=== PATIENT | male | born 1960 | race Caucasian/White ===

== ENCOUNTER 2018-06-20 16:49 | Inpatient (IN) ==
[2018-06-20] MEDS ORDERED: Acetaminophen 325 MG Tablet PO PRN (19:18)
[2018-06-20] MEDS ORDERED: Aluminum/Magnesium/Simethacone Susp 30 ML UDC PO PRN (19:18)
[2018-06-20] MEDS ORDERED: LORazepam 1 MG Tablet PO PRN (19:38)
[2018-06-20] MEDS ORDERED: Dextrose 50% in Water 50 ML Vial IV.PUSH PRN (20:00)
[2018-06-20] MEDS: Insulin NovoLOG Aspart Correctional Sugar Inj SQ SCH (21:26)
[2018-06-20] MEDS: oxyCODONE/Acetaminophen 10/325 Tablet PO PRN (22:18)
[2018-06-20] MEDS: Gabapentin 300 MG Capsule PO SCH (22:19)
[2018-06-21 02:05] LABS: Amphetamine Screen,Urine Neg (Neg); Barbiturate Screen,Urine Neg (Neg); Cannabinoid Screen,Urine Neg (Neg); Cocaine Screen,Urine Pos (Neg); Opiate Screen,Urine Neg (Neg)
[2018-06-21] MEDS: Insulin NovoLOG Aspart Correctional Sugar Inj SQ SCH ×5 (05:55→21:36)
[2018-06-21] MEDS: Gabapentin 300 MG Capsule PO SCH ×2 (09:02→21:25)
[2018-06-21] MEDS: Sertraline 100 MG Tablet PO SCH ×2 (09:02→21:25)
[2018-06-21] MEDS: oxyCODONE/Acetaminophen 10/325 Tablet PO PRN ×2 (09:10→18:07)
[2018-06-21 09:50] LABS: Calcium 9.1 mg/dL (8.5-10.1); Carbon Dioxide 27.1 meq/L (21.0-32.0); Potassium 4.7 meq/L (3.5-5.1)
[2018-06-21 09:53] LABS: Chol/HDL Ratio 2.68 Ratio; HDL Cholesterol 54.3 mg/dL (40.0-60.0)
[2018-06-21 10:52] LABS: Hemoglobin A1c 7.3 % (4.3-6.0)
--- NOTE | 2018-06-21 12:29 | P.HPPSY ---
Provisional Diagnosis Admission Date: June 20, 2018 18:40 [place] I.: Unspecified psychosis, rule out delusional disorder, rule out substance-induced psychosis Competence Certification of Person's Competence To Provide Express and Informed Consent I have personally examined Ayan Ace, a person being served at [facility] on, June 21, 2018 1222. Express and informed consent means consent voluntarily given in writing, by a competent person, after sufficient explanation and disclosure of the subject matter involved to enable the person to make a knowing and willful decision without any element of force, fraud, deceit, duress, or other form of constraint or coercion. This person is 18 years of age or older, is not now known to be incompetent to consent to treatment with a guardian advocate, and does not have a health care surrogate or proxy currently making medical treatment decisions. I have found this person to be one of the following: [] Competent to provide express and informed consent, as defined above, for voluntary admission to this facility and is competent to provide express and informed consent for treatment. He/she has the consistent capacity to make well reasoned, willful, and knowing decisions concerning his or her medical or mental health treatment. The person fully and consistently understands the purpose of the admission for examination/placement and is fully capable of personally exercising all rights assured [place] [] Incompetent to provide express and informed consent to voluntary admission, and this is incompetent to provide express and informed consent to treatment. The person must be transferred to involuntary status and a petition for a guardian advocate filed with the Circuit Court. [x] Refusing to provide express and informed consent to voluntary admission but is competent to provide express and informed consent for treatment. The person must be discharged or transferred to involuntary status. Form shall be completed within 24 hours of a person's arrival at the receiving facility and filed in the clinical record of each person: 1. Admitted on a voluntary basis 2. Permitted to provide express and informed consent to his/her own treatment 3. Allowed to transfer from involuntary to voluntary status 4. Prior to permitting a person to consent to his or her own treatment after having been previously found incompetent to consent to treatment. History of Present Illness Capacity: Has capacity History of Present Illness: 06/19/2017: The patient is a 57-year-old man, domiciled with his nephew in [facility], , unemployed, supported by [facility], with a psychiatric history of anxiety, alcohol use disorder he is on Xanax 0.5 mg 3 times daily, Zoloft 100 mg, no previous psychiatric hospitalizations, no previous suicide attempt with a past medical history significant for hypertension, diabetes mellitus, hypothyroidism and chronic back pain, who presents to the emergency department under [place] act for the evaluation of visual hallucinations and active paranoia. U tox was not done, BAL was 60. Routine lab work found the patient to be in acute renal failure. The patient has no known history of kidney disease however states he was previously treated for renal failure in the hospital but he cannot remember when or where. He states he was given IV fluids and was told that his issues had resolved. BUN/creatinine was 21/3.6, no recent lab work for comparison and baseline unknown. Consulted to psychiatry to address perceptual disturbances. On my psychiatric evaluation the patient initially calm, cooperative, but as the patient starts talking about his preoccupation and delusional perceptions he becomes a little bit agitated and irritable. The patient reports that at least for the last month he has seen 3 people underneath his trailer who are digging under the floor and cutting panels in the carpet and then re-taping it shut so that the evidence is gone when he tries to point this out to family members. The patient reports he has had conversations with the people under his trailer telling them that they need to leave. He adamantly states that he is not crazy and these people are actually there. Patient reports that he can listen to them, and during the night he can feel when they are digging under his house. He reports that he has been quite distressed, anxious and even depressed due to the situation. He says that he also has been very upset because nobody seems to believe him. He denies suicidal and homicidal ideation, he denies visual and auditory hallucinations. The patient does not have any significant thought process disorder, he is mostly logical, coherent and relevant. However, he has a fixed , insightless, will structure dilution, with increased paranoia and definitely visual hallucinations. He is fully oriented x3, no attention deficit, no fluctuation of consciousness are present. No agitation or aggressive behavior at this time. 06/21/2017: The patient is seen today for psychiatric reevaluation. Case was widely discussed with nursing charge. Chart reviewed. On the interview the patient presents calm, cooperative, pleasant. The patient reports that he feels much better to be here, he denies distress, he denies pain. He says that people here in the unit are very nice. However, the patient continues to say that he is upset with his family, because his family does not believe him "and I am the only one who knows that they are in danger". Patient says that there are several man around his house trying to dig a hole to get to his trailer. He says this man are homeless people "very dangerous". Patient is able to be redirected, but he does not have any insight. He denies suicidal and homicidal ideation, he denies visual and auditory hallucinations, no agitation, no aggressive behavior, no thought process disorder present at this moment. Collateral information from his [id number] Judit, , was obtained. She says that the patient has been living with her son for the last months. She says that the patient has been increasingly erratic, isolated, not being himself. She says that the patient has been making a statement that does not make any sense. She says that the patient has been calling the police, called multiple family members stating that homeless people are trying to kill him, are around his house, and are digging a hole under the house to get to his room to kill him. Recently, the patient has broken mirrors, doors and other objects in the house stating that the people are behind those places. Tonight the patient does not sleep, he keeps watching through the windows, and pointing at people that do not really exist. Family are very preoccupied about this behavior. She says that the patient also has been drinking alcohol every day. PPHx: with a psychiatric history of anxiety, alcohol use disorder he is on Xanax 0.5 mg 3 times daily, Zoloft 100 mg, no previous psychiatric hospitalizations, no previous suicide attempt, he says that he has an outpatient psychiatry which name is Dr. Acosta PMHx: with a past medical history significant for hypertension, diabetes mellitus, hypothyroidism and chronic back pain, Family Hx: No family psychiatric history Substance Hx: He reports to drinking 3 rum and Cokes approximately 2-3 times per week. Social Hx: man, was born and raised in [place], he is , has an adult son, domiciled with his nephew in [facility], unemployed, supported by [facility] - Inpatient Certification I certify that the inpatient services were ordered in accordance with Medicare regulations governing the order. This includes certification that hospital inpatient services are reasonable and necessary and in the case of services not specified as inpatient-only under 42 CFR 419.22(n), that they are appropriately provided as inpatient services in accordance to with the 2-midnight benchmark under 43 CFR 412.3(e) I certify that inpatient psychiatric hospital services are medically necessary. Evaluation and treatment and/or diagnostic testing are expected to improve the patient's condition. The patient needs on a daily basis, active treatment furnished directly by or requiring the supervision of inpatient psychiatric facility personnel. Review of Systems All other systems reviewed negative except as stated in HPI Psychiatric: Reports paranoia PMFSH - History History Provided By: Patient - Medical History Medical History: Medical History (Last Reviewed 06/18/18 @ 16:51 by MOOKIE Orozco) Diabetes Hepatitis C History of throat cancer Hypertension - Surgical History Surgical History: Surgical History (Last Reviewed 06/18/18 @ 16:51 by MOOKIE Orozco) History of ankle surgery History of tonsillectomy - Tobacco History Second Hand Smoke Exposure: No Smoking Status: Current every day smoker Tobacco Type: Cigarettes - Alcohol History How Often Do You Have a Drink Containing Alcohol: 2 to 4 times a month - Substance Use History Substance History: No History of Abuse Medications and Allergies Active Medications: Active Medications Acetaminophen (Tylenol) 650 mg PO Q4H PRN PRN Reason: Pain 1-5 or Temp >101F Al Hydrox/Mg Hydrox/Simethicone (Mag-Al Plus Susp Liq) 30 ml PO Q6H PRN PRN Reason: DYSPEPSIA Al Hydroxide/Mg Hydroxide (Milk Of Magnesia Liq) 30 ml PO Q12H PRN PRN Reason: Mild Constipation Clindamycin HCl (Cleocin) 450 mg PO Q6H [facility] Last Admin: 06/21/18 09:03 Dose: 450 mg Dextrose (D50w Vial) 50 ml IV.PUSH UNSCH PRN PRN Reason: PER HYPOGLYCEMIA PROTOCOL Flumazenil (Romazicon Inj) 0.2 mg IV.PUSH Q1M PRN PRN Reason: OVERSEDATION Gabapentin (Neurontin) 300 mg PO BID [facility] Last Admin: 06/21/18 09:02 Dose: 300 mg Glucagon (Glucagon Inj) 1 mg OTHER PRN PRN PRN Reason: for Hypoglycemia Protocol Insulin Aspart (Novolog Insulin Correctional Sugar Inj) 0 unit SQ ACHS AND 3AM SELMA; Protocol Last Admin: 06/21/18 11:25 Dose: 5 unit Insulin Detemir (Levemir Inj) 20 unit SQ QPM [facility] Lactobacillus Acidophilus (Lactinex Pkt) 1 gm PO BID [facility] Last Admin: 06/21/18 09:03 Dose: Not Given Levothyroxine Sodium (Synthroid) 25 mcg PO DAILY@0600 [facility] Lorazepam (Ativan) 1 mg PO Q4H PRN PRN Reason: for CIWA 8-10 Lorazepam (Ativan) 2 mg PO Q2H PRN PRN Reason: for CIWA 11-14 Lorazepam (Ativan Inj) 2 mg IV.PUSH Q2H PRN PRN Reason: for CIWA 11-14 Lorazepam (Ativan Inj) 2 mg IV.PUSH Q1H PRN PRN Reason: for CIWA 15-20 Lorazepam (Ativan Inj) 2 mg IV.PUSH Q15M PRN PRN Reason: for CIWA > 20 Lorazepam (Ativan Inj) 1 mg IV.PUSH Q4H PRN PRN Reason: for CIWA 8-10 Metoprolol Succinate (Toprol Xl) 25 mg PO DAILY [facility] Last Admin: 06/21/18 09:03 Dose: 25 mg Nicotine (Habitrol 21 Mg Patch.24 Hr) 1 patch T-DERMAL DAILY [facility] Last Admin: 06/21/18 09:09 Dose: Not Given Oxycodone/Acetaminophen (Percocet 10/325 Mg) 1 tab PO Q8H PRN PRN Reason: PAIN SCALE 6-10 Last Admin: 06/21/18 09:10 Dose: 1 tab Patch Removal (Remove Old Patch) 1 each T-DERMAL HS [facility] Last Admin: 06/20/18 22:25 Dose: Not Given Risperidone (Risperdal) 1 mg PO BID [facility] Last Admin: 06/21/18 09:03 Dose: 1 mg Sertraline HCl (Zoloft) 100 mg PO BID [facility] Last Admin: 06/21/18 09:02 Dose: 100 mg Thiamine HCl (Vitamin B1) 100 mg PO DAILY [facility] Last Admin: 06/21/18 09:03 Dose: 100 mg Allergies Allergy/AdvReac Type Severity Reaction Status Date / Time No Known Allergies Allergy Verified 06/18/18 16:13 Home Medications Medication Instructions Recorded Confirmed Type alprazolam 0.5 mg PO TID 06/18/18 06/18/18 History benazepril 10 mg PO DAILY 06/18/18 06/18/18 History cyclobenzaprine 5 mg PO TID 06/18/18 06/18/18 History gabapentin 300 mg PO TID 06/18/18 06/18/18 History glimepiride 5 mg PO BID 06/18/18 06/18/18 History insulin detemir U-100 [Levemir 20 unit SUBCUT QPM 06/18/18 06/18/18 History FlexTouch U-100 Insuln] levothyroxine 25 mcg PO DAILY 06/18/18 06/18/18 History metoprolol succinate 25 mg PO DAILY 06/18/18 06/18/18 History oxycodone-acetaminophen [Percocet] 1 tab PO Q6H PRN 06/18/18 06/18/18 History sertraline 100 mg PO BID 06/18/18 06/18/18 History Results - Labs CBC & Chem 7: 06/21/18 08:46 Labs: Laboratory Results - last 24 hr 06/21/18 06/21/18 06/21/18 01:42 05:53 07:27 Sodium Potassium Chloride Carbon Dioxide Anion Gap BUN Creatinine Estimated GFR POC Glucose 107 138 H Random Glucose Hemoglobin A1c Calcium Triglycerides Cholesterol LDL Cholesterol, Calc HDL Cholesterol Cholesterol/HDL Ratio Urine Opiates Screen Neg Ur Barbiturates Screen Neg Ur Amphetamines Screen Neg U Benzodiazepines Scrn Pos H Urine Cocaine Screen Pos H U Cannabinoids Screen Neg 06/21/18 06/21/18 06/21/18 08:46 08:46 11:20 Sodium 135 L Potassium 4.7 Chloride 101 Carbon Dioxide 27.1 Anion Gap 7 BUN 10 Creatinine 1.14 Estimated GFR 66 L POC Glucose 101 Random Glucose 244 H Hemoglobin A1c 7.3 H Calcium 9.1 Triglycerides 137 Cholesterol 146 LDL Cholesterol, Calc 64 HDL Cholesterol 54.3 Cholesterol/HDL Ratio 2.68 Urine Opiates Screen Ur Barbiturates Screen Ur Amphetamines Screen U Benzodiazepines Scrn Urine Cocaine Screen U Cannabinoids Screen Exam Vital signs: Vital Signs 06/20/18 18:58 06/21/18 03:58 06/21/18 06:10 Temperature 97.6 F 97.6 F Pulse Rate 77 95 H 77 Respiratory Rate 18 16 Blood Pressure 185/89 H 152/88 H 148/86 H Pulse Oximetry 77 L 100 Intake & Output 06/20/18 06/21/18 06/21/18 18:59 06:59 18:59 Weight 70.8 kg Other: Weight On Admission 70.8 kg Narrative: No tremors, no EPS, no psychomotor agitation or retardation, no withdrawal symptoms - Constitutional no acute distress, mild distress - Routine HEENT Exam Head: Present: normocephalic Eye: Present: EOMI ENT: Present: mucous membranes moist Mental Status Examination Appearance: Appropriate Consciousness: Alert Orientation: x4 Motor Activity: Normal gait Speech: Unremarkable Language: Adequate Fund of Knowledge: Adequate Attention and Concentration: Adequate Memory: Unremarkable Mood: Appropriate Affect: Appropriate Thought Process & Associations: Intact Thought Content: Delusional Hallucination Type: None Delusion Type: Bizarre, Paranoid Suicidal Ideation: No Suicidal Plan: No Suicidal Intention: No Homicidal Ideation: No Homicidal Plan: No Homicidal Intention: No Insight: Fair Judgment: Impulsive Assessment and Plan - Assessment (1) Unspecified psychosis Code(s): F29 - Unspecified psychosis not due to a substance or known physiological condition Status: Acute - Plan Plan: On my psychiatric evaluation today the patient presents calmer and more cooperative than my last evaluation in the medical floor, but he continues to be moderately distressed by what seems to be paranoid delusions fueled by visual hallucinations. The patient reports that he has been observing homeless people around his house digging a hole in the yard, in order to get to his house and to kill him. Apparently the patient has demonstrated changes in his behavior, has not been sleeping, has been aggressive, has destroyed property in his house, as per family. Apparently the patient has been demonstrating changes in behavior, visual hallucinations, and paranoid delusions for the last month. Patient has a psychiatric history of anxiety, alcohol use disorder, no previous psychiatric hospitalizations, no pre-suicide attempts, he has an established outpatient psychiatric care with Dr. Acosta, has been in Zoloft 100 mg and Xanax 0.5 mg 3 times daily. Given the level of his psychosis the patient represents danger to self and others. At this moment is unclear if current presentation is etiologically related with alcohol/benzodiazepine withdrawal, alcohol hallucinosis or a primary psychiatric illness decompensation. -He will be admitted in psychiatry for stabilization and safety -Will restart his Zoloft 100 mg. -We will start Risperdal 1 mg twice daily for psychosis. QTC is 419 -We will start CIWA protocol for potential withdrawal of benzodiazepine and alcohol -grounds worker intervention for psychosocial assessment, individual and group therapies, collateral information and to coordinate safe discharge -Support, motivation, psychoeducation provided -We will consult psychiatry for second opinion Justification for Continued Inpatient Stay: Continue psychiatric admission
--- NOTE | 2018-06-21 14:58 | P.CON ---
History of Present Illness Service: [facility] Consult date: 06/21/18 Requesting Physician: Pradeep Sparks Reason for Consult: Medical management, recent YIMI and cellulitis Primary Care Provider: UNKNOWN Chief Complaint: right knee pain History of Present Illness: Patient is a 57-year-old male with significant past medical history of alcohol use, anxiety, diabetes type 2, hypertension, hypothyroidism, chronic back pain. Patient initially presented to emergency room on June 18 under Moise act for evaluation of visual hallucinations. During evaluation in the emergency room, patient was found in acute renal failure. Patient had no known history of chronic kidney disease. He was also found with right knee cellulitis. Patient was admitted, psychiatry as well as nephrology were consulted for evaluation. Psychiatry evaluated patient and initiated medications, was put on CISC protocol. Psychiatry recommended admission once medically clear. Nephrology evaluated patient, renal ultrasound was done which showed no obstruction. He was put on IV fluids and renal function improved. Patient was put on antibiotics initially Keflex which caused some diarrhea therefore he was switched to clindamycin. He has tolerated well. Wound care has follow patient , and right knee is improving. Patient was medically clear and was discharged to psych for further treatment. Patient is now evaluated, he is ambulating around unit without any difficulties. Indicates that the right knee is improving. When asked how he injured the right knee, indicates he had been doing yard work and had been kneeling for hours and developed 2 fluid-filled blisters that popped. No recent fever, no chills. Denies any diarrhea, no nausea, no vomiting. Has been voiding well. Denies any chest pain, no shortness of breath. Endorses history of alcohol use, states he does not drink daily and only at bars. States that he is doing better, he expresses that he is upset that his sister for bringing him here. Hospital services are requested to assist with medical management. Review of Systems All other systems reviewed negative except as stated in HPI PMFSH - History History Provided By: Patient - Medical History Medical History: Medical History (Last Reviewed 06/21/18 @ 16:38 by MOOKIE Gaines) ETOH abuse Tobacco abuse Diabetes Hepatitis C History of throat cancer Hypertension - Surgical History Surgical History: Surgical History (Last Reviewed 06/21/18 @ 16:38 by MOOKIE Gaines) History of ankle surgery History of tonsillectomy - Family History Family History: Family History (Last Updated 06/21/18 @ 16:38 by MOOKIE Gaines) Other No pertinent family history - Social History I have reviewed the patient's Social History: Yes - Tobacco History Second Hand Smoke Exposure: No Smoking Status: Current every day smoker Tobacco Type: Cigarettes - Alcohol History How Often Do You Have a Drink Containing Alcohol: 2 to 4 times a month - Substance Use History Substance History: No History of Abuse - Substance Use Type Other Frequency: weekly Last Used: few days ago Comment: [place] stated he used multiple substances in his 20's. He states he drinks socially 2x per week. Medications and Allergies Active Medications: Active Medications Acetaminophen (Tylenol) 650 mg PO Q4H PRN PRN Reason: Pain 1-5 or Temp >101F Al Hydrox/Mg Hydrox/Simethicone (Mag-Al Plus Susp Liq) 30 ml PO Q6H PRN PRN Reason: DYSPEPSIA Al Hydroxide/Mg Hydroxide (Milk Of Magnesia Liq) 30 ml PO Q12H PRN PRN Reason: Mild Constipation Clindamycin HCl (Cleocin) 450 mg PO Q6H [facility] Last Admin: 06/21/18 14:27 Dose: 450 mg Dextrose (D50w Vial) 50 ml IV.PUSH UNSCH PRN PRN Reason: PER HYPOGLYCEMIA PROTOCOL Flumazenil (Romazicon Inj) 0.2 mg IV.PUSH Q1M PRN PRN Reason: OVERSEDATION Gabapentin (Neurontin) 300 mg PO BID [facility] Last Admin: 06/21/18 09:02 Dose: 300 mg Glucagon (Glucagon Inj) 1 mg OTHER PRN PRN PRN Reason: for Hypoglycemia Protocol Insulin Aspart (Novolog Insulin Correctional Sugar Inj) 0 unit SQ ACHS AND 3AM SELMA; Protocol Last Admin: 06/21/18 11:25 Dose: 5 unit Insulin Detemir (Levemir Inj) 20 unit SQ QPM SELMA Lactobacillus Acidophilus (Lactinex Pkt) 1 gm PO BID [facility] Last Admin: 06/21/18 09:03 Dose: Not Given Levothyroxine Sodium (Synthroid) 25 mcg PO DAILY@0600 [facility] Lorazepam (Ativan) 1 mg PO Q4H PRN PRN Reason: for CIWA 8-10 Lorazepam (Ativan) 2 mg PO Q2H PRN PRN Reason: for CIWA 11-14 Lorazepam (Ativan Inj) 2 mg IV.PUSH Q2H PRN PRN Reason: for CIWA 11-14 Lorazepam (Ativan Inj) 2 mg IV.PUSH Q1H PRN PRN Reason: for CIWA 15-20 Lorazepam (Ativan Inj) 2 mg IV.PUSH Q15M PRN PRN Reason: for CIWA > 20 Lorazepam (Ativan Inj) 1 mg IV.PUSH Q4H PRN PRN Reason: for CIWA 8-10 Metoprolol Succinate (Toprol Xl) 25 mg PO DAILY [facility] Last Admin: 06/21/18 09:03 Dose: 25 mg Nicotine (Habitrol 21 Mg Patch.24 Hr) 1 patch T-DERMAL DAILY [facility] Last Admin: 06/21/18 09:09 Dose: Not Given Oxycodone/Acetaminophen (Percocet 10/325 Mg) 1 tab PO Q8H PRN PRN Reason: PAIN SCALE 6-10 Last Admin: 06/21/18 09:10 Dose: 1 tab Patch Removal (Remove Old Patch) 1 each T-DERMAL HS [facility] Last Admin: 06/20/18 22:25 Dose: Not Given Risperidone (Risperdal) 1 mg PO BID [facility] Last Admin: 06/21/18 09:03 Dose: 1 mg Sertraline HCl (Zoloft) 100 mg PO BID [facility] Last Admin: 06/21/18 09:02 Dose: 100 mg Thiamine HCl (Vitamin B1) 100 mg PO DAILY [facility] Last Admin: 06/21/18 09:03 Dose: 100 mg Allergies Allergy/AdvReac Type Severity Reaction Status Date / Time No Known Allergies Allergy Verified 06/18/18 16:13 Home Medications Medication Instructions Recorded Confirmed Type alprazolam 0.5 mg PO TID 06/18/18 06/18/18 History benazepril 10 mg PO DAILY 06/18/18 06/18/18 History cyclobenzaprine 5 mg PO TID 06/18/18 06/18/18 History gabapentin 300 mg PO TID 06/18/18 06/18/18 History glimepiride 5 mg PO BID 06/18/18 06/18/18 History insulin detemir U-100 [Levemir 20 unit SUBCUT QPM 06/18/18 06/18/18 History FlexTouch U-100 Insuln] levothyroxine 25 mcg PO DAILY 06/18/18 06/18/18 History metoprolol succinate 25 mg PO DAILY 06/18/18 06/18/18 History oxycodone-acetaminophen [Percocet] 1 tab PO Q6H PRN 06/18/18 06/18/18 History sertraline 100 mg PO BID 06/18/18 06/18/18 History Physical Exam Vital signs: Vital Signs 06/20/18 18:58 06/21/18 03:58 06/21/18 06:10 Temperature 97.6 F 97.6 F Pulse Rate 77 95 H 77 Respiratory Rate 18 16 Blood Pressure 185/89 H 152/88 H 148/86 H Pulse Oximetry 77 L 100 Intake & Output 06/20/18 06/21/18 06/21/18 18:59 06:59 18:59 Weight 70.8 kg Other: Weight On Admission 70.8 kg Narrative: GENERAL: Well-nourished, well-developed patient in no apparent distress. SKIN: Right knee with scabbed ulcerated wound, irregular borders, healing well, minimal erythema. Eschar noted. HEAD: Atraumatic. Normocephalic. EYES: Pupils equal and round. No scleral icterus. No injection or drainage. ENT: No nasal bleeding or discharge. Mucous membranes pink and moist. NECK: Trachea midline. No JVD. CARDIOVASCULAR: Regular rate and rhythm. RESPIRATORY: No accessory muscle use. Clear to auscultation. Breath sounds equal bilaterally. GASTROINTESTINAL: Abdomen soft, non-tender, nondistended. Hepatic and splenic margins not palpable. MUSCULOSKELETAL: Extremities without clubbing, cyanosis, or edema. No obvious deformities. NEUROLOGICAL: Awake and alert and oriented x3.. No obvious cranial nerve deficits. Motor grossly within normal limits. Five out of 5 muscle strength in the arms and legs. Normal speech. PSYCHIATRIC: Remains somewhat paranoid Results - Labs CBC & Chem 7: 06/21/18 08:46 Labs: Laboratory Results - last 24 hr 06/21/18 06/21/18 06/21/18 01:42 05:53 07:27 Sodium Potassium Chloride Carbon Dioxide Anion Gap BUN Creatinine Estimated GFR POC Glucose 107 138 H Random Glucose Hemoglobin A1c Calcium Triglycerides Cholesterol LDL Cholesterol, Calc HDL Cholesterol Cholesterol/HDL Ratio Urine Opiates Screen Neg Ur Barbiturates Screen Neg Ur Amphetamines Screen Neg U Benzodiazepines Scrn Pos H Urine Cocaine Screen Pos H U Cannabinoids Screen Neg 06/21/18 06/21/18 06/21/18 08:46 08:46 11:20 Sodium 135 L Potassium 4.7 Chloride 101 Carbon Dioxide 27.1 Anion Gap 7 BUN 10 Creatinine 1.14 Estimated GFR 66 L POC Glucose 101 Random Glucose 244 H Hemoglobin A1c 7.3 H Calcium 9.1 Triglycerides 137 Cholesterol 146 LDL Cholesterol, Calc 64 HDL Cholesterol 54.3 Cholesterol/HDL Ratio 2.68 Urine Opiates Screen Ur Barbiturates Screen Ur Amphetamines Screen U Benzodiazepines Scrn Urine Cocaine Screen U Cannabinoids Screen Assessment and Plan - Plan Patient is a 57-year-old male who initially presented with hallucinations, brought in under Moise act. Found to have evidence of acute kidney injury possibly secondary to dehydration. Was found with cellulitis to the right knee. Psychiatry was consulted for evaluation. Patient was medically clear and discharged to psychiatric for further treatment. Hallucinations, psychosis Alcohol abuse disorder Anxiety Continue with psychiatric treatment -Continue with CIWA protocol -Continue with thiamine 100 mg p.o. daily Recent acute kidney injury, possibly component of chronic kidney disease Initial creatinine during hospitalization 3.16, most recent creatinine 1.14 Likely etiology for acute kidney injury was dehydration Encourage p.o. fluids Instructed to avoid NSAIDs Avoid nephrotoxic agents -Monitor BMP intermittently Right knee cellulitis, patient states that he had been doing yard work and had developed a fluid-filled blisters that opened up Right knee wound is improving, minimal erythema, eschar is noted Continue with clindamycin 450 mg x 5 days -Monitor for diarrhea, continue Lactinex Continue with localized wound care Tobacco abuse -Approximately 15 minutes was spent counseling the patient is cessation techniques. Understands continuing to smoke could lead to stroke and , worsening of COPD. Benefits of stopping also presented to the patient. Patient verbalized desire to "give it a try" regarding smoking cessation and its benefits. -Nicotine patch already ordered per psych team Diabetes type 2 -Open A1c 7.3 Continue with Accu-Cheks before meals and at bedtime Hypertension Continue with home medication-Toprol 25 mg p.o. daily Hypothyroid Continue with Levothyroxine Labs reviewed, improved Thank you for this consultation, we will sign off for now. Reconsult if needed Code Status: Full code Discussed Condition With: RN, patient Discharge Planning: Per psychiatric team
[2018-06-21] MEDS: Insulin Detemir Inj 1,000 UNIT/10 ML Vial SQ SCH (18:21)
[2018-06-22] MEDS: Insulin NovoLOG Aspart Correctional Sugar Inj SQ SCH ×5 (03:29→21:27)
[2018-06-22] MEDS: Sertraline 100 MG Tablet PO SCH ×3 (09:30→21:41)
[2018-06-22] MEDS: Gabapentin 300 MG Capsule PO SCH ×2 (09:37→21:41)
[2018-06-22] MEDS: oxyCODONE/Acetaminophen 10/325 Tablet PO PRN ×2 (11:23→22:04)
--- NOTE | 2018-06-22 15:03 | P.PNPSY ---
Subjective Remarks: This is a request for second opinion. Admission note was reviewed and I agree with the history. Patient was seen and case was discussed with nursing. Patient continues to be psychotic with a fixed delusion that there are bombs living under his trailer. Patient says he went under there and his evidence of them living there are cuts on their ceiling or under his floor boards. He is perseverative on discharge. Otherwise behaving well on the unit. He denies any auditory or visual hallucinations. No other delusions were elicited Review of Systems All other systems reviewed negative except as stated in HPI Mental Status Examination Appearance: Appropriate Consciousness: Alert Orientation: x4 Motor Activity: Normal gait Speech: Unremarkable Language: Adequate Fund of Knowledge: Adequate Attention and Concentration: Adequate Memory: Unremarkable Mood: Appropriate Affect: Appropriate Thought Process & Associations: Intact Thought Content: Delusional Hallucination Type: None Delusion Type: Paranoid Suicidal Ideation: No Suicidal Plan: No Suicidal Intention: No Homicidal Ideation: No Homicidal Plan: No Homicidal Intention: No Insight: Fair Judgment: Impulsive Assessment and Plan - Assessment (1) Unspecified psychosis Code(s): F29 - Unspecified psychosis not due to a substance or known physiological condition Status: Acute - Plan Plan: I agree with the first opinion to continue petition. Criteria include acute psychosis Justification for Continued Inpatient Stay: Patient would decompensate in a less restrictive setting
[2018-06-22] MEDS: Insulin Detemir Inj 1,000 UNIT/10 ML Vial SQ SCH (18:04)
[2018-06-23] MEDS: Insulin NovoLOG Aspart Correctional Sugar Inj SQ SCH ×5 (03:09→20:11)
[2018-06-23] MEDS: Gabapentin 300 MG Capsule PO SCH ×2 (08:28→20:06)
[2018-06-23] MEDS: Sertraline 100 MG Tablet PO SCH ×2 (08:29→20:07)
[2018-06-23] MEDS: oxyCODONE/Acetaminophen 10/325 Tablet PO PRN ×2 (08:35→17:56)
--- NOTE | 2018-06-23 13:30 | P.PNPSY ---
Subjective Remarks: She was seen today for psychiatric reevaluation. Patient is calm, cooperative, very pleasant. The patient continues to report that he is very sure, even though nobody seems to be living, that "there are some homeless men but has been around my house making a hole to get under my trailer". Patient continues to be preoccupied about this, but he does accept a little bit that might not be true. He also says that he sees them he is no planning to do anything against then, he will call his family or the police. The patient reports to be in a good mood, he says that he has enjoyed to be in the unit, has been taking his medications, no significant side effects reported. He is fully oriented x3, no attention deficit, no fluctuation of consciousness. No agitation, no aggressive behavior reported. Patient has been integrated in activities in the unit. Mental Status Examination Appearance: Appropriate Consciousness: Alert Orientation: x4 Motor Activity: Normal gait Speech: Unremarkable Language: Adequate Fund of Knowledge: Adequate Attention and Concentration: Adequate Memory: Unremarkable Mood: Appropriate Affect: Appropriate Thought Process & Associations: Intact Thought Content: Delusional Hallucination Type: None Delusion Type: Paranoid Suicidal Ideation: No Suicidal Plan: No Suicidal Intention: No Homicidal Ideation: No Homicidal Plan: No Homicidal Intention: No Insight: Fair Judgment: Impulsive Assessment and Plan - Assessment (1) Unspecified psychosis Code(s): F29 - Unspecified psychosis not due to a substance or known physiological condition Status: Acute - Plan Plan: Patient continues to show symptoms of psychosis, paranoia, does not seem to be so distressed by the delusions like before. Has gained a little bit of insight. We will increase risperidone to 2 mg twice daily. Support, motivation , psych education provided. Justification for Continued Inpatient Stay: Continue psychiatric hospitalization for stabilization.
[2018-06-23] MEDS: Insulin Detemir Inj 1,000 UNIT/10 ML Vial SQ SCH (17:46)
[2018-06-24] MEDS: Insulin NovoLOG Aspart Correctional Sugar Inj SQ SCH ×5 (02:36→20:25)
[2018-06-24] MEDS: oxyCODONE/Acetaminophen 10/325 Tablet PO PRN ×2 (07:55→18:29)
[2018-06-24] MEDS: Sertraline 100 MG Tablet PO SCH ×2 (08:25→20:26)
[2018-06-24] MEDS: Gabapentin 300 MG Capsule PO SCH ×2 (08:25→20:29)
--- NOTE | 2018-06-24 13:36 | P.DSPSY ---
Psychiatry Discharge Summary Inpatient Psychiatric care?: Yes Advance Directives: No Mental Health Advance Directive: No Health Care Proxy: Yes - Admission Admission Date: June 20, 2018 18:40 - Admission Diagnosis (1) Unspecified psychosis Code(s): F29 - Unspecified psychosis not due to a substance or known physiological condition Brief History: 06/19/2017: The patient is a 57-year-old man, domiciled with his nephew in [facility], , unemployed, supported by [facility], with a psychiatric history of anxiety, alcohol use disorder he is on Xanax 0.5 mg 3 times daily, Zoloft 100 mg, no previous psychiatric hospitalizations, no previous suicide attempt with a past medical history significant for hypertension, diabetes mellitus, hypothyroidism and chronic back pain, who presents to the emergency department under Moise act for the evaluation of visual hallucinations and active paranoia. U tox was not done, BAL was 60. Routine lab work found the patient to be in acute renal failure. The patient has no known history of kidney disease however states he was previously treated for renal failure in the hospital but he cannot remember when or where. He states he was given IV fluids and was told that his issues had resolved. BUN/creatinine was 21/3.6, no recent lab work for comparison and baseline unknown. Consulted to psychiatry to address perceptual disturbances. On my psychiatric evaluation the patient initially calm, cooperative, but as the patient starts talking about his preoccupation and delusional perceptions he becomes a little bit agitated and irritable. The patient reports that at least for the last month he has seen 3 people underneath his trailer who are digging under the floor and cutting panels in the carpet and then re-taping it shut so that the evidence is gone when he tries to point this out to family members. The patient reports he has had conversations with the people under his trailer telling them that they need to leave. He adamantly states that he is not crazy and these people are actually there. Patient reports that he can listen to them, and during the night he can feel when they are digging under his house. He reports that he has been quite distressed, anxious and even depressed due to the situation. He says that he also has been very upset because nobody seems to believe him. He denies suicidal and homicidal ideation, he denies visual and auditory hallucinations. The patient does not have any significant thought process disorder, he is mostly logical, coherent and relevant. However, he has a fixed , insightless, will structure dilution, with increased paranoia and definitely visual hallucinations. He is fully oriented x3, no attention deficit, no fluctuation of consciousness are present. No agitation or aggressive behavior at this time. 06/21/2017: The patient is seen today for psychiatric reevaluation. Case was widely discussed with nursing charge. Chart reviewed. On the interview the patient presents calm, cooperative, pleasant. The patient reports that he feels much better to be here, he denies distress, he denies pain. He says that people here in the unit are very nice. However, the patient continues to say that he is upset with his family, because his family does not believe him "and I am the only one who knows that they are in danger". Patient says that there are several man around his house trying to dig a hole to get to his trailer. He says this man are homeless people "very dangerous". Patient is able to be redirected, but he does not have any insight. He denies suicidal and homicidal ideation, he denies visual and auditory hallucinations, no agitation, no aggressive behavior, no thought process disorder present at this moment. Collateral information from his [id number] Jud[facility], , was obtained. She says that the patient has been living with her son for the last months. She says that the patient has been increasingly erratic, isolated, not being himself. She says that the patient has been making a statement that does not make any sense. She says that the patient has been calling the police, called multiple family members stating that homeless people are trying to kill him, are around his house, and are digging a hole under the house to get to his room to kill him. Recently, the patient has broken mirrors, doors and other objects in the house stating that the people are behind those places. Tonight the patient does not sleep, he keeps watching through the windows, and pointing at people that do not really exist. Family are very preoccupied about this behavior. She says that the patient also has been drinking alcohol every day. PPHx: with a psychiatric history of anxiety, alcohol use disorder he is on Xanax 0.5 mg 3 times daily, Zoloft 100 mg, no previous psychiatric hospitalizations, no previous suicide attempt, he says that he has an outpatient psychiatry which name is Dr. Acosta PMHx: with a past medical history significant for hypertension, diabetes mellitus, hypothyroidism and chronic back pain, Family Hx: No family psychiatric history Substance Hx: He reports to drinking 3 rum and Cokes approximately 2-3 times per week. Social Hx: man, was born and raised in [place], he is , has an adult son, domiciled with his nephew in [facility], unemployed, supported by [facility] Tobacco Use In Past 30 Days: Yes How Often Do You Have a Drink Containing Alcohol: 2 to 4 times a month Hospital Course: The patient was admitted in the psychiatric floor after he was evaluated in the ER where he came on the Moise act due to delusions and hallucinations. On initial evaluation the patient presented with fixed, complex, will structure paranoid delusions of people trying to make a hole to get inside his trailer. An initial psychiatric and psychosocial assessment was performed. Safety measures taken. The patient was admitted in 2700 unit. After appropriate medical clearance the patient was started on risperidone 1 mg twice daily, I restarted and his Zoloft 100 mg. He was was initiated in CIWA protocol to prevent withdrawal symptoms per the patient was seen every day by a psychiatrist the psychiatric floor, who was engaged in individual and group therapies, his risperidone was increased to 2 mg twice daily, as patient could tolerate. He showed a very good positive response to the psychotropic regimen and also psychotherapy. During his hospitalization social worker palliative care was able to communicate with his sister and plan a safe discharge talk about his baseline. Patient also saw during the hospitalization addiction counselor. Patient was reported to be mostly compliant, no agitation, no aggressive behavior was observed. The patient was initially very calm, cooperative, integrated to activities. At the moment of the discharge the patient is mostly logical, coherent and relevant. The patient denies suicidal and homicidal ideation. The patient continues to have some low level of fixed delusional thinking but he shows good insight and is able to verbalize agreement with the safety plan including continue taking his medications, continue sobriety, been compliant with outpatient follow-ups. - Discharge Discharge Date: 06/15/18 - Discharge Diagnosis (1) Unspecified psychosis Code(s): F29 - Unspecified psychosis not due to a substance or known physiological condition Status: Acute Discharge Disposition: Home - Discharge Instructions Activities You Can Perform: Regular- No Restrictions - Discharge Time > 30 minutes Mental Status Examination Appearance: Appropriate Consciousness: Alert Orientation: x4 Motor Activity: Normal gait Speech: Unremarkable Language: Adequate Fund of Knowledge: Adequate Attention and Concentration: Adequate Memory: Unremarkable Mood: Appropriate Affect: Appropriate Thought Process & Associations: Intact Thought Content: Appropriate Hallucination Type: None Delusion Type: Paranoid Suicidal Ideation: No Suicidal Plan: No Suicidal Intention: No Homicidal Ideation: No Homicidal Plan: No Homicidal Intention: No Insight: Fair Judgment: Impulsive Discharge/Advance Care Plan - Results Vital Signs: Last Vital Signs Temp 97.5 F L 06/24/18 05:40 Pulse 83 06/24/18 05:40 Resp 18 06/24/18 05:40 BP 130/84 06/24/18 05:40 Pulse Ox 95 06/24/18 05:40 Lab Results: Abnormal Lab Results 06/23/18 06/23/18 06/23/18 16:04 16:07 17:50 POC Glucose 50 L 54 L 184 H 06/23/18 06/24/18 06/24/18 19:49 02:31 06:21 POC Glucose 202 H 94 60 L 06/24/18 06/24/18 07:41 11:17 POC Glucose 78 309 H Laboratory Results Hemoglobin A1c 7.3 % (4.3-6.0) H 06/21/18 08:46 Triglycerides 137 mg/dL (42-150) 06/21/18 08:46 Cholesterol 146 mg/dL (120-200) 06/21/18 08:46 LDL Cholesterol, Calc 64 mg/dL (0-99) 06/21/18 08:46 HDL Cholesterol 54.3 mg/dL (40.0-60.0) 06/21/18 08:46 Summary of Procedures: None Imaging: None Pending Results: None - Medications Number of antipsychotic medications at discharge: 1 - Discharge Care Plan Goals to Promote Your Health: * To prevent worsening of your condition and complications * To maintain your health at the optimal level Directions to Meet Your Goals: Take your medications as prescribed Follow your dietary instruction Follow activity as directed Keep your appointments as scheduled Take your immunizations and boosters as scheduled If your symptoms worsen call your PCP, if no PCP go to Urgent Care Center or Emergency Room For 31/12 questions related to your inpatient stay or results of tests pending at discharge, please contact Dr. Roger Marinelli MD at Smoking is Dangerous to Your Health. Avoid second hand smoking
[2018-06-24] MEDS: Insulin Detemir Inj 1,000 UNIT/10 ML Vial SQ SCH (18:07)
[2018-06-25] MEDS: Insulin NovoLOG Aspart Correctional Sugar Inj SQ SCH ×3 (02:32→11:23)
[2018-06-25 05:49] VITALS: BP 145/90; PULSE 75; RESP 17; TEMP 97; O2SAT 93
[2018-06-25] MEDS: Gabapentin 300 MG Capsule PO SCH (08:09)
[2018-06-25] MEDS: oxyCODONE/Acetaminophen 10/325 Tablet PO PRN (08:50)
[2018-06-25] MEDS: Sertraline 100 MG Tablet PO SCH (08:55)
--- NOTE | 2018-06-25 16:06 | P.PNPSY ---
Subjective Remarks: The patient was seen this morning for psychiatric reevaluation. He was discharged yesterday, but discharge was aborted after his [id number] stated that the patient told her that he would stab "those people around my house". Today the patient continues to be calm, cooperative, insightful of his delusion. The patient has a plan of not going back to the trailer. But, he tells me that he would continue taking his medications, will go to his appointments, and will avoid to think about people getting under my trailer. Patient is logical, coherent and relevant. No agitation, no aggressive behavior has been reported during this hospitalization. The patient has been mostly pleasant, very cooperative, completely compliant with his medication and medical recommendations. Mental Status Examination Appearance: Appropriate Consciousness: Alert Orientation: x4 Motor Activity: Normal gait Speech: Unremarkable Language: Adequate Fund of Knowledge: Adequate Attention and Concentration: Adequate Memory: Unremarkable Mood: Appropriate Affect: Appropriate Thought Process & Associations: Intact Thought Content: Appropriate Hallucination Type: None Delusion Type: Paranoid Suicidal Ideation: No Suicidal Plan: No Suicidal Intention: No Homicidal Ideation: No Homicidal Plan: No Homicidal Intention: No Insight: Fair Judgment: Impulsive Assessment and Plan - Assessment (1) Unspecified psychosis Code(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 Patient does not meet criteria to continue psychiatric admission. Will be discharged 2 days morning. Same plan than yesterday Justification for Continued Inpatient Stay: No admission indicated.
== END 2018-06-25 12:30 | disposition home or self-care (01) | DRG 885 ==
LOC: H270 18:40
PROVIDERS: ADMIT Psychiatry & Neurology Psychiatry; ATTEND Psychiatry & Neurology Psychiatry
CPT/HCPCS: 80048; 80061; 80307; 82948; 82962; 83036; J1815